=== PATIENT | male | born 1955 | race Caucasian/White ===

== ENCOUNTER 2018-01-16 12:03 | Emergency (ER) | payer MEDICARE, OTHER ==
[2018-01-16 12:07] VITALS: TEMP 98.8
[2018-01-16] MEDS ORDERED: Sodium Chloride 0.9% 500 ML IV ONE (13:25)
[2018-01-16 14:31] LABS: BASO % 0.7 % (0.0-2.0); EOS # 0.1 K/uL (0.0-0.7); EOS % 1.9 % (0.0-4.0); HEMOGLOBIN 14.1 g/dL (12.0-18.0); LYMPH # 1.9 K/uL (1.0-4.3); LYMPH % 30.3 % (20.0-40.0); MEAN CELL VOLUME 88.7 fL (80.0-94.0); MEAN CORPUSCULAR HEMOGLOBIN 31.2 pg (27.0-31.0); MEAN CORPUSCULAR HGB CONC 35.1 g/dL (33.0-37.0); MEAN PLATELET VOLUME 9.8 fL (7.2-11.7); MONO # 0.5 K/uL (0.0-0.8); MONO % 7.5 % (0.0-10.0); NEUT # 3.8 K/uL (1.8-7.0); NEUT % 59.6 % (50.0-75.0); RBC 4.52 Mil/uL (4.40-5.90); RED CELL DISTRIBUTION WIDTH 13.2 % (11.5-14.5); WHITE BLOOD COUNT 6.4 K/uL (4.8-10.8)
--- NOTE | 2018-01-16 14:41 | C.PDOC ---
History Of Present Illness 62 y/o male presents to ED with c/o diffuse body aches for 2 weeks associated with generalized weakness. Patient admits to productive cough "for months" and states he saw PMD Dr. Fairbanks 1 week ago for his, but has had no improvement - prompting visit to ED today. Patient denies CP, SOB, nausea, vomiting, diarrhea , abdominal pain, fever, or any other complaints. Time Seen by Provider: 01/16/18 13:04 Chief Complaint (Nursing): High Blood Pressure History Per: Patient History/Exam Limitations: no limitations Onset/Duration Of Symptoms: Days Current Symptoms Are (Timing): Still Present Past Medical History Reviewed: Historical Data, Nursing Documentation, Vital Signs Vital Signs: Last Vital Signs Temp 98.8 F 01/16/18 12:06 Pulse 81 01/16/18 17:36 Resp 18 01/16/18 17:36 BP 194/115 H 01/16/18 17:36 Pulse Ox 97 01/16/18 17:36 - Medical History PMH: Diabetes, HTN, Hypercholesterolemia Surgical History: No Surg Hx Family History: States: No Known Family Hx - Social History Hx Tobacco Use: No Hx Alcohol Use: No Hx Substance Use: No - Immunization History Hx Tetanus Toxoid Vaccination: No Hx Influenza Vaccination: No Hx Pneumococcal Vaccination: No Review Of Systems Constitutional: Negative for: Fever, Chills Cardiovascular: Negative for: Chest Pain, Palpitations Respiratory: Positive for: Cough. Negative for: Shortness of Breath Gastrointestinal: Negative for: Nausea, Vomiting, Abdominal Pain Skin: Negative for: Rash Neurological: Positive for: Weakness Physical Exam - Physical Exam Appears: Well, Non-toxic Skin: Warm, Dry, No Rash Head: Normacephalic Eye(s): bilateral: Normal Inspection Oral Mucosa: Moist Neck: Supple Cardiovascular: Rhythm Regular Respiratory: Normal Breath Sounds, No Rales, No Rhonchi, No Wheezing Gastrointestinal/Abdominal: Normal Exam, Bowel Sounds, Soft, No Tenderness, No Guarding, No Rebound, Other (Obese abdomen) Back: No CVA Tenderness Neurological/Psych: Oriented x3 ED Course And Treatment - Laboratory Results Result Diagrams: 01/16/18 14:10 01/16/18 14:10 O2 Sat by Pulse Oximetry: 98 (RA) Pulse Ox Interpretation: Normal - Radiology CXR: Interpreted by Me, Viewed By Me CXR Interpretation: Yes: No Acute Disease. No: Infiltrates Progress Note: Blood work, CXR, UA ordered and reviewed. Patient given IV NS bolus, IV toradol. Patient hyperglycemic, IV insulin + another liter NS given. Reevaluation Time: 17:25 Reassessment Condition: Improved (On reassessment, patient is resting comfortable and reports feeling better. Repeat accucheck 269 after IV fluids and insulin. Patient is asking to be discharged home, was instructed to keep tighter control of his blood sugars and to follow up with PMD in 1-2 days. He understands he should return to ED if symptoms worsen.) Disposition Counseled Patient/Family Regarding: Studies Performed, Diagnosis, Need For Followup - Disposition Referrals: El Fairbanks MD [Staff Provider] - Disposition: HOME/ ROUTINE Disposition Time: 17:25 Condition: STABLE Additional Instructions: FOLLOW UP WITH YOUR DOCTOR IN 1-2 DAYS RETURN TO EMERGENCY ROOM IF SYMPTOMS WORSEN SEGUIMIENTO CON [place] MD[place] EN 1-2 EDDY REGRESE AL EFRA DE EMERGENCIA SI LOS SNTOMAS EMPEORAN Instructions: Hyperglycemia, Adult (DC) Forms: [employer] (Japanese) Print Language: ICELANDIC - Clinical Impression Clinical Impression: Hyperglycemia, Body aches - Scribe Statement The provider has reviewed the documentation as recorded by the Scribsimona Fajardo All medical record entries made by the Scribe were at my direction and personally dictated by me. I have reviewed the chart and agree that the record accurately reflects my personal performance of the history, physical exam, medical decision making, and the department course for this patient. I have also personally directed, reviewed, and agree with the discharge instructions and disposition.
[2018-01-16 14:43] LABS: URINE BILIRUBIN NEGATIVE (NEGATIVE); URINE BLOOD NEGATIVE (NEGATIVE); URINE CLARITY Clear (Clear); URINE COLOR Straw (YELLOW); URINE GLUCOSE (UA) 3+ mg/dL (Normal); URINE LEUKOCYTE ESTERASE NEG Leu/uL (Negative); URINE PROTEIN NEGATIVE (NEGATIVE); URINE UROBILINOGEN NORMAL mg/dL (0.2-1.0)
--- NOTE | 2018-01-16 14:46 | RAD ---
PROCEDURE: CHEST RADIOGRAPH, 1 VIEW HISTORY: COUGH COMPARISON: None available. FINDINGS: LUNGS: Clear. PLEURA: No pneumothorax or pleural fluid seen. CARDIOVASCULAR: Normal. OSSEOUS STRUCTURES: No significant abnormalities. VISUALIZED UPPER ABDOMEN: Normal. OTHER FINDINGS: None. IMPRESSION: No active disease.
[2018-01-16 14:47] LABS: ALB/GLOB RATIO 1.4 (1.0-2.1); ALBUMIN 4.2 g/dL (3.5-5.0); ALT/SGPT 34 U/L (21-72); AST/SGOT 19 U/L (17-59); BLOOD UREA NITROGEN 20 mg/dL (9-20); CALCIUM 8.7 mg/dl (8.6-10.4); GFR AFRICAN-AMERICAN > 60; GFR NON-AFRICAN AMERICAN > 60; LIPASE 160 U/L (23-300)
[2018-01-16] MEDS ORDERED: Sodium Chloride 0.9% 1,000 ML IV ONE (15:07)
[2018-01-16] MEDS ORDERED: (Novolin R) Insulin Human Regular 100 units/ml vial IV STA (15:07)
[2018-01-16] MEDS ORDERED: (Novolin R) Insulin Human Regular 100 units/ml vial ONE (16:02)
[2018-01-16] MEDS ORDERED: Sodium Chloride 0.9% 1,000 ML ONE (16:02)
[2018-01-16 17:36] VITALS: BP 194/115; PULSE 81; RESP 18
[2018-01-18 18:38] VITALS: O2SAT 98
== END 2018-01-16 17:49 | disposition home or self-care (01) ==
LOC: C.ER 12:03
DX: E11.65 Type 2 diabetes mellitus with hyperglycemia (principal); R52 Pain, unspecified
CPT/HCPCS: 71045; 80053; 81001; 82948; 83690; 85025; 96361; 96374; 96375; 99285; J1885; J7030; J7040

== ENCOUNTER 2018-05-07 20:49 | Inpatient (IN) | payer MEDICARE, OTHER ==
--- NOTE | 2018-05-07 22:20 | C.PDOC ---
History Of Present Illness Patient is a 62 y/o male with PMHx of HTN, who reports he is compliant with medications. Patient states his blood pressure is never controlled. Tonight he presents complaining of a headache. States he is legally blind, and there has been no change in vision. Patient also complains of a sharp pain in the upper back. Denies any chest pain, palpitations, SOB, numbness, tingling, or urinary symptoms. Time Seen by Provider: 05/07/18 21:57 Chief Complaint (Nursing): Headache History Per: Patient History/Exam Limitations: no limitations Onset/Duration Of Symptoms: Hrs Current Symptoms Are (Timing): Still Present Past Medical History Reviewed: Historical Data, Nursing Documentation, Vital Signs Vital Signs: Last Vital Signs Temp 99.1 F 05/07/18 21:04 Pulse 91 H 05/07/18 21:04 Resp 18 05/07/18 21:04 BP 181/107 H 05/07/18 21:04 Pulse Ox 98 05/07/18 21:04 - Medical History PMH: Diabetes, HTN, Hypercholesterolemia Family History: States: Unknown Family Hx - Social History Hx Tobacco Use: No Hx Alcohol Use: No Hx Substance Use: No - Immunization History Hx Tetanus Toxoid Vaccination: No Hx Influenza Vaccination: No Hx Pneumococcal Vaccination: No Review Of Systems Except As Marked, All Systems Reviewed And Found Negative. Constitutional: Negative for: Fever, Chills Eyes: Negative for: Vision Change (but pt is legally blind) Cardiovascular: Negative for: Chest Pain, Palpitations Respiratory: Negative for: Shortness of Breath Gastrointestinal: Negative for: Nausea, Vomiting, Diarrhea Genitourinary: Negative for: Dysuria, Frequency, Hematuria Neurological: Positive for: Headache. Negative for: Weakness, Numbness, Change in Speech, Confusion, Dizziness Physical Exam - Physical Exam Appears: Non-toxic, No Acute Distress Skin: Normal Color, Warm, Dry Head: Atraumatic, Normacephalic Eye(s): bilateral: Normal Inspection Oral Mucosa: Moist Neck: Normal ROM, No Midline Cervical Tenderness, Supple, Other (No nuchal r igidity) Chest: Symmetrical Cardiovascular: Rhythm Regular, No Murmur Respiratory: Normal Breath Sounds, No Accessory Muscle Use, No Wheezing Gastrointestinal/Abdominal: Soft, No Tenderness, No Distention Extremity: Bilateral: Atraumatic, Normal Color And Temperature, Normal ROM Neurological/Psych: Oriented x3, Normal Speech, Normal Cranial Nerves, Normal Motor, Normal Sensation Gait: Steady ED Course And Treatment - Laboratory Results Result Diagrams: 05/07/18 22:59 05/07/18 22:59 Lab Interpretation: No Changes Compared To Prior Results ECG: Interpreted By Me ECG Rhythm: Sinus Rhythm ECG Interpretation: No Acute Changes O2 Sat by Pulse Oximetry: 98 (RA) Pulse Ox Interpretation: Normal - CT Scan/US CT HEAD Other Rad Studies (CT/US): Read By Radiologist CT/US Interpretation: FINDINGS: BRAIN. No acute intraparenchymal hemorrhage. No mass lesion. No CT evidence for acute territorial infarct. No midline shift or extra-axial collections. VENTRICLES: No hydrocephalus. ORBITS: The orbits are unremarkable. IMPRESSION: No acute intracranial abnormality. Progress Note: Blood work and urine sent. Lopressor 50 mg PO administered. EKG and CT Head obtained and reviewed. Results discussed with patient. Reevaluation Time: 00:30 Reassessment Condition: Unchanged (BP remains significantly elevated) - Physician Consult Information Time Consulting Physician Contacted: 00:31 Physician Contacted: El Fairbanks Outcome Of Conversation: He knows the patient well and will assume care of the patient on his service. Disposition - Disposition Disposition: HOSPITALIZED Disposition Time: 00:32 Condition: FAIR - POA Present On Arrival: None - Clinical Impression Clinical Impression: Uncontrolled hypertension - Scribe Statement The provider has reviewed the documentation as recorded by the Scribe (Jillian Vogt) Provider Attestation: All medical record entries made by the Scribe were at my direction and personally dictated by me. I have reviewed the chart and agree that the record accurately reflects my personal performance of the history, physical exam, medical decision making, and the department course for this patient. I have also personally directed, reviewed, and agree with the discharge instructions and disposition.
[2018-05-07 23:04] LABS: BASO % 0.2 % (0.0-2.0); EOS # 0.2 K/uL (0.0-0.7); HEMOGLOBIN 13.9 g/dL (12.0-18.0); LYMPH # 2.8 K/uL (1.0-4.3); LYMPH % 32.2 % (20.0-40.0); MEAN CELL VOLUME 89.5 fL (80.0-94.0); MEAN CORPUSCULAR HEMOGLOBIN 31.1 pg (27.0-31.0); MEAN CORPUSCULAR HGB CONC 34.7 g/dL (33.0-37.0); MONO # 0.7 K/uL (0.0-0.8); MONO % 7.9 % (0.0-10.0); NEUT % 57.7 % (50.0-75.0); RBC 4.47 Mil/uL (4.40-5.90); RED CELL DISTRIBUTION WIDTH 13.4 % (11.5-14.5); WHITE BLOOD COUNT 8.7 K/uL (4.8-10.8)
[2018-05-07 23:10] LABS: URINE BILIRUBIN NEGATIVE (NEGATIVE); URINE BLOOD NEGATIVE (NEGATIVE); URINE CLARITY Clear (Clear); URINE COLOR Straw (YELLOW); URINE GLUCOSE (UA) NORMAL (Normal); URINE LEUKOCYTE ESTERASE NEG Leu/uL (Negative); URINE PROTEIN NEGATIVE (NEGATIVE); URINE UROBILINOGEN NORMAL mg/dL (0.2-1.0)
[2018-05-07 23:21] LABS: ALB/GLOB RATIO 1.4 (1.0-2.1); ALBUMIN 4.3 g/dL (3.5-5.0); ALT/SGPT 27 U/L (21-72); AST/SGOT 17 U/L (17-59); BLOOD UREA NITROGEN 23 mg/dL (9-20); CALCIUM 9.7 mg/dl (8.6-10.4); GFR NON-AFRICAN AMERICAN > 60
[2018-05-08] MEDS ORDERED: Nitroglycerin 2% Ointment Foilpak UD TOP STA (00:30)
[2018-05-08] MEDS ORDERED: Nitroglycerin 2% Ointment Foilpak UD TOP ONE (01:03)
[2018-05-08 06:25] LABS: CK-MB 0.9 ng/mL (0.0-3.38); TROPONIN I 0.059 ng/mL (0.00-0.120)
--- NOTE | 2018-05-08 07:38 | CT ---
Date of service: 05/07/2018 PROCEDURE: CT HEAD WITHOUT CONTRAST. HISTORY: Head injury. COMPARISON: 04/21/2013 TECHNIQUE: Axial computed tomography images were obtained through the head/brain without intravenous contrast. Radiation dose: Total exam DLP = one thousand fifty-two mGy-cm. This CT exam was performed using one or more of the following dose reduction techniques: Automated exposure control, adjustment of the mA and/or kV according to patient size, and/or use of iterative reconstruction technique. FINDINGS: HEMORRHAGE: No intracranial hemorrhage. BRAIN: No mass effect or edema. Scattered focal lucencies in the subcortical and periventricular white matter suggestive for chronic microvascular ischemic change. Persistent more confluent low attenuation in the right parietal subcortical white matter also concerning for possible chronic microvascular ischemic changes. If symptoms persist consider correlation with MRI to exclude additional etiologies. Clinical correlation. Bilateral basal ganglia lacunar infarcts. VENTRICLES: Unremarkable. No hydrocephalus. CALVARIUM: Unremarkable. PARANASAL SINUSES: Unremarkable as visualized. No significant inflammatory changes. MASTOID AIR CELLS: Unremarkable as visualized. No inflammatory changes. OTHER FINDINGS: Intracranial arterial calcifications. Punctate calcification in the right cerebellum. IMPRESSION: No acute intracranial abnormality. Chronic microvascular ischemic changes. Persistent more confluent low attenuation in the right parietal subcortical white matter also concerning for possible chronic microvascular ischemic changes. If symptoms persists consider correlation with MRI to exclude additional etiologies. Clinical correlation. These findings were preliminarily reported at 10:42 p.m. on 05/07/[address] Indra Paige from [facility].
[2018-05-08 08:09] VITALS: RESP 20
[2018-05-08] MEDS ORDERED: Glucagon Recombinant 1 mg Inj IM PRN (08:14)
[2018-05-08] MEDS ORDERED: Dextrose 50% SYRINGE Inj (50 ml) IV PRN (08:14)
[2018-05-08] MEDS: Enoxaparin 40 mg Syringe SC SCH (10:15)
[2018-05-08] MEDS: Omega-3-Acid Ethyl Esters 1 GM Cap PO SCH ×2 (10:15→18:30)
[2018-05-08] MEDS: POLYETHYLENE GLYCOL 3350 17 GM/Dose PACKET PO SCH (10:16)
[2018-05-08] MEDS: Pantoprazole 40 mg EC Tab PO SCH (10:16)
[2018-05-08] MEDS ORDERED: guaiFENesin 200 mg/10 ml Syrup UD PO PRN (10:52)
[2018-05-08 11:46] LABS: CK-MB 0.83 ng/mL (0.0-3.38); TROPONIN I 0.049 ng/mL (0.00-0.120)
[2018-05-08] MEDS: (Novolog) Insulin Aspart, Recombinant 100 u/ml 10 ml vial SC SCH ×3 (12:07→21:47)
--- NOTE | 2018-05-08 14:47 | CARD ---
APPROVED REPORT Date of service: 05/08/2018 EXAM: Two-dimensional and M-mode echocardiogram with Doppler and color Doppler. Other Information Quality : GoodRhythm : INDICATION Left ventricular hypertrophy RISK FACTORS Hypertension Hyperlipidemia 2D DIMENSIONS IVSd1.5 (0.7-1.1cm)LVDd4.3 (3.9-5.9cm) PWd1.3 (0.7-1.1cm)LA Xuguqf09 (18-58mL) LVDs2.9 (2.5-4.0cm)FS (%) 32.8 % LVEF (%)61.5 (>50%)LVEF ([facility])60 % M-Mode DIMENSIONS Left Atrium (MM)4.36 (2.5-4.0cm)IVSd1.59 (0.7-1.1cm) Aortic Root4.06 (2.2-3.7cm)LVDd5.62 (4.0-5.6cm) Aortic Cusp Exc.2.58 (1.5-2.0cm)PWd1.26 (0.7-1.1cm) FS (%) 42 %LVDs3.25 (2.0-3.8cm) LVEF (%)72 (>50%) Aortic Valve AI P 1/2 [id number] Mitral Valve MV E Ulpnvrsc88.5cm/sMV A Jcgkzzao430.8cm/sE/A ratio0.6 TDI Lateral E' Peak V4.93cm/sMedial E' Peak V3.96cm/sE/Lateral E'11.7 E/Medial E'14.5 Tricuspid Valve TR Peak Rntqjzbt533fi/sTR Peak Gr.[id number] LEFT VENTRICLE The left ventricle is normal size. There is mild to moderate concentric left ventricular hypertrophy. The left ventricular function systolic is normal. The left ventricular ejection fraction is within the normal range. There is normal LV segmental wall motion. Transmitral Doppler flow pattern is Grade I-abnormal relaxation pattern. RIGHT VENTRICLE The right ventricle is normal size. The right ventricular systolic function is normal. ATRIA The left atrium size is normal. The right atrium size is normal. AORTIC VALVE The aortic valve is normal in structure. There is mild aortic regurgitation. MITRAL VALVE The mitral valve is normal in structure. There is no mitral valve regurgitation noted. TRICUSPID VALVE The tricuspid valve is normal in structure. There is trace to mild tricuspid regurgitation. Right ventricular systolic pressure is estimated at less than 30 mmHg. PULMONIC VALVE The pulmonary valve is normal in structure. There is trace to mild pulmonic valvular regurgitation. GREAT VESSELS The aortic root is mildly enlarged. The IVC is normal in size and collapses >50% with inspiration. PERICARDIAL EFFUSION There is no pericardial effusion. <Conclusion> There is mild to moderate concentric left ventricular hypertrophy. The left ventricular systolic function systolic is normal. There is normal LV segmental wall motion. Diastolic dysfunction Grade I. The right ventricular systolic function is normal. There is mild aortic regurgitation. There is trace to mild tricuspid and pulmonic regurgitation. The aortic root is mildly enlarged. There is no pericardial effusion.
--- NOTE | 2018-05-08 16:09 | CARD ---
APPROVED REPORT Date of service: 05/07/2018 EKG Measurement Heart [id number] <Conclusion> Normal sinus rhythm Possible Left atrial enlargement Borderline ECG
[2018-05-08] MEDS: (Novolog Mix 70/30) Insulin Aspart/Insulin Aspar 100 units/ml SC SCH (18:31)
[2018-05-08] MEDS ORDERED: Metoprolol 1 mg/ml Inj IVP ONE (21:13)
--- NOTE | 2018-05-08 23:57 | CP.PCM.HP ---
Past Patient History - Infectious Disease Hx of Infectious Diseases: None - Past Social History Smoking Status: Never Smoked - CARDIAC Hx Hypercholesterolemia: Yes Hx Hypertension: Yes - NEUROLOGICAL Other/Comment: weakness - ENDOCRINE/METABOLIC Hx Diabetes Mellitus Type 2: Yes - MUSCULOSKELETAL/RHEUMATOLOGICAL Hx Falls: No - PSYCHIATRIC Hx Substance Use: No - SURGICAL HISTORY Hx Surgeries: No - ANESTHESIA Hx Anesthesia: No Hx Anesthesia Reactions: No Meds Allergies/Adverse Reactions: Allergies Allergy/AdvReac Type Severity Reaction Status Date / Time Penicillins Allergy Verified 05/07/18 21:04 Results - Vital Signs Recent Vital Signs: Last Vital Signs Temp 98 F 05/08/18 15:55 Pulse 85 05/08/18 15:55 Resp 20 05/08/18 15:55 BP 199/117 H 05/08/18 21:10 Pulse Ox 95 05/08/18 15:55 - Labs Result Diagrams: 05/07/18 22:59 05/07/18 22:59 Labs: Laboratory Results - last 24 hr 05/08/18 05/08/18 05/08/18 05:37 06:44 10:59 POC Glucose (mg/dL) 200 H 300 H Total Creatine Kinase 71 CK-MB (Mass) 0.90 Troponin I 0.0590 05/08/18 05/08/18 05/08/18 11:15 16:23 20:56 POC Glucose (mg/dL) 158 H 152 H Total Creatine Kinase 70 CK-MB (Mass) 0.83 Troponin I 0.0490
--- NOTE | 2018-05-09 06:43 | HP ---
CHIEF COMPLAINT: Headache. HISTORY OF PRESENT ILLNESS: This is a 62-year-old male, well known to me. He is a nonsmoker and non-EtOH user. He is noncompliant with his diet, medications, and followup. He has a longstanding hypertension, hyperlipidemia, types 2 diabetes. The patient mostly does not use his medications and get sick, and he comes to my office. In his usual state of health, he is ambulatory and independent in activities of daily living. 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 The patient denies any chest pain, dyspnea on exertion, orthopnea, or PND. The patient has cough. No sore throat. No phlegm. The patient denies any history of dysuria, hematuria, or pyuria. The patient denies any history of trauma, fall, or loss of consciousness. The patient denies any sneezing or itchy eyes, but he has nasal congestion. PAST MEDICAL HISTORY: Type 2 diabetes, hypertension, hyperlipidemia, and allergic rhinitis. SOCIAL HISTORY: Nonsmoker, non-EtOH user. CURRENT MEDICATIONS: At home, he is on Cipro. He is on Zyrtec, Amitiza, Avalide, metformin, Pravachol, MiraLAX, Norvasc, omeprazole, Diovan, and insulin. He is on cortisone b.i.d. PHYSICAL EXAMINATION: GENERAL: An elderly male acute distress. At the moment, he is denying any headache or dizziness. VITAL SIGNS: Blood pressure 161/91, pulse 85, respiratory rate 20, and temperature 98. SKIN: Senile turgor. No bruises. No purpura. No petechiae. HEENT: Atraumatic, normocephalic. Negative pallor. Negative jaundice. Extraocular movements are intact. NECK: Supple. No JVD. No lymph node. No thyromegaly. No carotid bruits. CHEST WALL: Bilateral symmetrical expansion. LUNGS: Clear. No rales. No rhonchi. CEREBROVASCULAR SYSTEM: S1 and S2 are regular. No heave. No thrill. ABDOMEN: Soft. Nontender. Bowel sounds are positive. CENTRAL NERVOUS SYSTEM: Awake, alert, and oriented x3. ASSESSMENT: 1. Uncontrolled hypertension due to noncompliance. 2. Type 2 diabetes. 3. Hypertension. 4. Hyperlipidemia. PLAN: Admit. Detailed orders written. Seen and examined. El Fairbanks MD
[2018-05-09] MEDS: (Novolog) Insulin Aspart, Recombinant 100 u/ml 10 ml vial SC SCH ×2 (07:43→12:11)
[2018-05-09 07:48] LABS: BLOOD UREA NITROGEN 20 mg/dL (9-20); CALCIUM 9.6 mg/dl (8.6-10.4); GFR NON-AFRICAN AMERICAN > 60
[2018-05-09] MEDS: (Novolog Mix 70/30) Insulin Aspart/Insulin Aspar 100 units/ml SC SCH (08:26)
[2018-05-09] MEDS: Pantoprazole 40 mg EC Tab PO SCH (10:01)
[2018-05-09] MEDS: Omega-3-Acid Ethyl Esters 1 GM Cap PO SCH (10:01)
[2018-05-09] MEDS: POLYETHYLENE GLYCOL 3350 17 GM/Dose PACKET PO SCH (10:01)
[2018-05-09] MEDS: Enoxaparin 40 mg Syringe SC SCH (10:01)
[2018-05-09] MEDS ORDERED: Nitroglycerin 2% Ointment Foilpak UD TOP ONE (14:00)
[2018-05-09 16:21] VITALS: BP 181/102; PULSE 84; TEMP 97.9; O2SAT 98
--- NOTE | 2018-05-09 23:00 | CP.PCM.PN ---
Subjective - Subjective Subjective: dictated Objective - Vital Signs/Intake and Output Vital Signs (last 24 hours): Temp Pulse Resp BP Pulse Ox 97.9 F 84 20 181/102 H 98 05/09/18 16:00 05/09/18 16:00 05/09/18 16:00 05/09/18 16:00 05/09/18 16:00 - Labs Labs: 05/07/18 22:59 05/09/18 07:24
== END 2018-05-09 16:39 | disposition home or self-care (01) | DRG 305 ==
LOC: SUPCPDRO 20:49 → C.ER 20:49 → C.9E 05-08 00:34 → C.5S 05-08 06:11
PROVIDERS: ADMIT Internal Medicine; ATTEND Internal Medicine
DX: I10 Essential (primary) hypertension (principal); E11.9 Type 2 diabetes mellitus without complications; R51 Headache; E78.5 Hyperlipidemia, unspecified; E78.00 Pure hypercholesterolemia, unspecified; H54.8 Legal blindness, as defined in USA; Z91.14 Patient's other noncompliance with medication regimen; Z91.19 Patient's noncompliance with other medical treatment and regimen; Z91.11 Patient's noncompliance with dietary regimen; Z79.4 Long term (current) use of insulin